=== PATIENT | male | born 1955 | race African-American/Black ===

== ENCOUNTER 2023-07-20 08:58 | Emergency (ER) | payer MEDICARE ==
[~2023-07-20] VITALS: Ht 205.7 cm; Wt 136.0 kg
[2023-07-20 09:10] VITALS: BP 142/85; RESP 20; TEMP 98.1; O2SAT 99
[2023-07-20 09:12] VITALS: PULSE 90
[2023-07-20] MEDS ORDERED: NAPR500T7 MT (10:29)
== END 2023-07-20 11:19 | disposition home or self-care (01) ==
LOC: ER 08:58
DX: M77.32 Calcaneal spur, left foot (principal); Z98.890 Other specified postprocedural states
CPT/HCPCS: 73630; 99283

== ENCOUNTER 2023-09-12 12:19 | Emergency (ER) | payer MEDICARE ==
[~2023-09-12] VITALS: Ht 205.7 cm; Wt 136.0 kg
[~2023-09-12 12:19] MED LIST: NAPR500T7 MT
[2023-09-12 12:26] VITALS: O2SAT 100
[2023-09-12] MEDS: KETOROLAC 30MG/ML VIAL IM ONE (13:16)
[2023-09-12 13:19] VITALS: BP 133/74; PULSE 87; RESP 18; TEMP 98.6
== END 2023-09-12 13:18 | disposition home or self-care (01) ==
LOC: ER 12:19
DX: M25.562 Pain in left knee (principal); M19.90 Unspecified osteoarthritis, unspecified site; Z98.890 Other specified postprocedural states
CPT/HCPCS: 99283; 73564; 96372; J1885

== ENCOUNTER 2023-12-23 19:43 | Emergency (ER) | payer MEDICARE ==
[~2023-12-23] VITALS: Ht 205.7 cm; Wt 136.2 kg
[2023-12-23 19:45] VITALS: TEMP 98.1; O2SAT 97
[2023-12-23] MEDS: KETOROLAC 15MG/ML VIAL IV ONE (20:49)
[2023-12-23 20:51] LABS: BASOPHILS % 1.4 % (0.0-2.0); EOSINOPHILS % 5.6 % (0.0-5.0); HEMATOCRIT. 42.4 % (42.0-52.0); HEMOGLOBIN. 13.9 g/dL (14.0-18.0); LYMPHOCYTES % 23.4 % (20.0-50.0); MEAN CORPUSCULAR HEMOGLOBIN 30.2 pg (28.0-32.0); MEAN CORPUSCULAR HGB CONC 32.8 g/dL (31.0-37.0); MEAN CORPUSCULAR VOLUME 92.2 fL (80.0-94.0); MEAN PLATELET VOLUME 7.9 fl (7.4-10.4); MONOCYTES % 9.9 % (2.0-8.0); NEUTROPHILS % 59.7 % (40.0-76.0); PLATELET 190 x1000/uL (130-400); RED CELL DISTRIBUTION WIDTH 14.7 % (11.6-14.6); WHITE BLOOD COUNT 5.3 x1000/uL (4.5-11.0)
[2023-12-23 20:58] LABS: CARBON DIOXIDE 24 mEq/L (21-32); CHLORIDE 108 mEq/L (98-107); POTASSIUM 4.2 mEq/L (3.5-5.1); SODIUM 137 mEq/L (136-145)
[2023-12-23 20:59] LABS: CALCIUM 8.8 mg/dL (8.7-10.4)
[2023-12-23 21:04] LABS: GLUCOSE 98 mg/dL (70-105); TROPONIN I HIGH SENSITIVITY 5 ng/L (3.0-53); UREA NITROGEN BLOOD 7 mg/dL (9-23)
[2023-12-23 21:05] LABS: ALANINE AMINOTRANSFERASE 8 IU/L (10-49); ALBUMIN 4.1 g/dL (3.2-4.8); ASPARTATE AMINOTRANSFERASE 18 IU/L (<34)
[2023-12-23 21:06] LABS: BILIRUBIN TOTAL 0.3 mg/dL (0.1-1.0); PROTEIN TOTAL 6.8 g/dL (6.0-8.3)
[2023-12-23 21:07] LABS: BILIRUBIN DIRECT < 0.1 mg/dL (<=3.0)
[2023-12-23 22:05] LABS: CLARITY URINE CLEAR (CLEAR); COLOR URINE YELLOW (YELLOW); GLUCOSE URINE NEGATIVE (NEGATIVE); KETONES URINE NEGATIVE (NEGATIVE); LEUKOCYTE ESTERASE URINE NEGATIVE (NEGATIVE); NITRITE URINE NEGATIVE (NEGATIVE); OCCULT BLOOD URINE NEGATIVE (NEGATIVE); PH URINE 6.5 (4.5-8.0); PROTEIN URINE NEGATIVE (NEGATIVE); SPECIFIC GRAVITY URINE 1.015 (1.005-1.030)
[2023-12-23] MEDS ORDERED: IOHEXOL-300 100 ML BOTTLE ONE (23:48)
[2023-12-23 23:49] VITALS: BP 142/89; PULSE 79; RESP 16
== END 2023-12-23 23:56 | disposition home or self-care (01) ==
LOC: ER 19:43
DX: R10.32 Left lower quadrant pain (principal); R42 Dizziness and giddiness; Z95.0 Presence of cardiac pacemaker
CPT/HCPCS: 99285; 74177; 80076; 80048; 81003; 83690; 85025; 84484; 36415; 93005; Q9967; J1885; 99284